=== PATIENT | female | born 1960 | race Caucasian/White ===

== ENCOUNTER 2016-11-13 17:40 | Emergency (ER) | payer OTHER ==
[2016-11-13] MEDS ORDERED: ASPIRIN 81 MG TABLET, CHEWABLE PO ONE (18:07)
--- NOTE | 2016-11-13 18:07 | ER Document Report ---
ED Medical Screen (RME) - General Chief Complaint: Syncope Stated Complaint: FOOT INJURY Mode of Arrival: Wheelchair Information source: Patient Notes: She presents to the emergency department with complaints of left foot pain. Patient reports she was sitting down with her foot under her leg she got up and heard a pop. Patient also reports that when she felt like she was in a passout. She told her to get a chair, was able to sit down, and she passed out or lost consciousness for 20-30 seconds. Patient reports she was incontinent of urine. Patient reports history of syncope. Has not had a spell for 5 years. Last spell was when she laughed really hard and passed out. Patient reports that she also feels a little funny in her chest. She was a diabetic. Patient denies history of cardiac disease but also reports that they had to drain fluid from around her heart one time. I have greeted and performed a rapid initial assessment of this patient. A comprehensive ED assessment and evaluation of the patient, analysis of test results and completion of the medical decision making process will be conducted by additional ED providers. TRAVEL OUTSIDE OF THE [place] IN LAST 30 DAYS: No - Related Data Allergies/Adverse Reactions: No Known Allergies Allergy (Verified 11/13/16 18:01) Physical Exam - Vital signs Vitals: Temp Pulse Resp BP Pulse Ox 97.4 F 81 20 139/62 H 96 11/13/16 17:58 11/13/16 17:58 11/13/16 17:58 11/13/16 17:58 11/13/16 17:58 Course - Vital Signs Vital signs: Temp Pulse Resp BP Pulse Ox 97.4 F 81 20 139/62 H 96 11/13/16 17:58 11/13/16 17:58 11/13/16 17:58 11/13/16 17:58 11/13/16 17:58
[2016-11-13 18:54] LABS: ABSOLUTE BASOPHILS # (AUTO) 0.1 10^3/uL (0.0-0.2); ABSOLUTE EOSINOPHILS # (AUTO) 0.2 10^3/uL (0.0-0.6); ABSOLUTE LYMPHOCYTES (AUTO) 2.6 10^3/uL (0.5-4.7); ABSOLUTE MONOCYTES (AUTO) 0.8 10^3/uL (0.1-1.4); ABSOLUTE NEUT (AUTO) 6.1 10^3/uL (1.7-8.2); BASOPHILS % (AUTO) 1.2 % (0-2); EOSINOPHILS % (AUTO) 1.5 % (0-6); HEMATOCRIT 43.4 % (36.0-47.0); HEMOGLOBIN 14.6 g/dL (12.0-15.5); HGB HCT DIFFERENCE 0.4; LYMPHOCYTES % (AUTO) 26.6 % (13-45); MEAN CORPUSCULAR HEMOGLOBIN 30.5 pg (27.0-33.4); MEAN CORPUSCULAR HGB CONC 33.7 g/dL (32.0-36.0); MEAN CORPUSCULAR VOLUME 91 fl (80-97); MONOCYTES % (AUTO) 7.9 % (3-13); RED BLOOD COUNT 4.79 10^6/uL (3.72-5.28); RED CELL DISTRIBUTION WIDTH 15.9 % (11.5-14.0); SEGMENTED NEUTROPHILS % (AUTO) 62.8 % (42-78); WHITE BLOOD COUNT 9.7 10^3/uL (4.0-10.5)
[2016-11-13 19:10] LABS: ALANINE AMINOTRANSFERASE 26 U/L (9-52); ALBUMIN 4.2 g/dL (3.5-5.0); ALKALINE PHOSPHATASE 118 U/L (38-126); ANION GAP 12 (5-19); ASPARTATE AMINO TRANSFERASE 16 U/L (14-36); BILIRUBIN,TOTAL 0.7 mg/dL (0.2-1.3); BLOOD UREA NITROGEN 19 mg/dL (7-20); CALCIUM 10.1 mg/dL (8.4-10.2); CARBON DIOXIDE 28 mmol/L (22-30); CHLORIDE 103 mmol/L (98-107); CREATINE KINASE 41 U/L (30-135); CREATININE RESULT 1.19 mg/dL (0.52-1.25); GLUCOSE 117 mg/dL (75-110); POTASSIUM 3.7 mmol/L (3.6-5.0); SODIUM 143.2 mmol/L (137-145); TOTAL PROTEIN 7.6 g/dL (6.3-8.2)
--- NOTE | 2016-11-13 19:16 | ER Document Report ---
ED General - General Chief Complaint: Foot Injury Stated Complaint: FOOT INJURY Time seen by provider: 19:05 Mode of Arrival: Wheelchair Notes: Patient is a 56-year-old female that comes emergency department for chief complaint of pain to her left foot and ankle, she states that she had to go to the bathroom, got up quickly after having her foot tucked under her, felt a sharp pop and sharp pain in her foot, states that she suddenly felt like she was going to pass out, she was helped to the ground as she lost consciousness, she was passed out for about 20 seconds, she was incontinent of her urine. Patient states that she came because she wants her foot checked out. She denies chest pain, dizziness, shortness of breath, states currently she feels no symptoms except for pain in her left foot and ankle. She smokes, she denies any daily medications, she denies any medical history other than passing out once about 5 years ago after laughing really hard. TRAVEL OUTSIDE OF THE [place] IN LAST 30 DAYS: No - Related Data Allergies/Adverse Reactions: No Known Allergies Allergy (Verified 11/13/16 18:01) Past Medical History - General Information source: Patient - Social History Smoking Status: Current Every Day Smoker Chew tobacco use (# tins/day): No Frequency of alcohol use: Occasional Drug Abuse: None Lives with: Family Family History: Reviewed & Not Pertinent Patient has suicidal ideation: No Patient has homicidal ideation: No - Medical History Medical History: Negative Renal/ Medical History: Denies: Hx Peritoneal Dialysis Surgical Hx: Negative - Immunizations Immunizations up to date: Yes Hx Diphtheria, Pertussis, Tetanus Vaccination: Yes Review of Systems - Review of Systems Constitutional: No symptoms reported EENT: No symptoms reported Cardiovascular: See HPI Respiratory: No symptoms reported Gastrointestinal: No symptoms reported Genitourinary: No symptoms reported Female Genitourinary: No symptoms reported Musculoskeletal: See HPI Skin: No symptoms reported Hematologic/Lymphatic: No symptoms reported Neurological/Psychological: See HPI Physical Exam - Vital signs Vitals: Temp Pulse Resp BP Pulse Ox 97.4 F 81 20 139/62 H 96 11/13/16 17:58 11/13/16 17:58 11/13/16 17:58 11/13/16 17:58 11/13/16 17:58 Interpretation: Normal - General General appearance: Appears well, Alert In distress: None - HEENT Head: Normocephalic, Atraumatic Eyes: Normal Pupils: PERRL - Respiratory Respiratory status: No respiratory distress Chest status: Nontender Breath sounds: Normal. No: Decreased air movement, Nonproductive cough, Wheezing Chest palpation: Normal - Cardiovascular Rhythm: Regular. No: Tachycardia Heart sounds: Normal auscultation, S1 appreciated, S2 appreciated Murmur: No - Abdominal Inspection: Normal Distension: No distension Bowel sounds: Normal Tenderness: Nontender. No: Tender, Guarding Organomegaly: No organomegaly - Back Back: Normal, Nontender. No: Tender - Extremities General upper extremity: Normal inspection, Nontender, Normal color, Normal ROM , Normal temperature General lower extremity: Other - There is slight soft tissue swelling and tenderness over the lateral aspect of the left foot extending up to the base of the ankle, ankle range of motion intact, normal foot, leg exam otherwise, normal distal neurovascular exam - Neurological Neuro grossly intact: Yes Cognition: Normal Orientation: AAOx4 [place] Coma Scale Eye Opening: Spontaneous [place] Coma Scale Verbal: Oriented [place] Coma Scale Motor: Obeys Commands Skylar Coma Scale Total: 15 Speech: Normal Motor strength normal: LUE, RUE, LLE, RLE Sensory: Normal - Psychological Associated symptoms: Normal affect, Normal mood - Skin Skin Temperature: Warm Skin Moisture: Dry Skin Color: Normal Course - Re-evaluation Re-evalutation: EKG shows sinus rhythm with first-degree heart block with [place] interval of 220, flattened T waves in leads aVL and in lead III, no ST segment or T-wave abnormalities in consecutive leads, no other abnormalities noted. CBC, chemistry generally unremarkable with very mild hyperglycemia and slightly low GFR with normal creatinine. Patient has lateral ankle/foot swelling, x-rays with no acute findings. No tenderness of the leg. Patient denying any current symptoms other than foot pain. I noted that patient had told triage according to the note that she had some discomfort in her chest, I asked patient again also specifically, she denies ever having any chest pain or shortness of breath, or any other symptoms other than the pain in her foot and the episode of passing out. 11/13/16 20:00 I discussed with patient potentially recycling cardiac enzymes to give cardiac clearance in regards to her syncope, patient states she came here for her foot be evaluated, she states she understands the potential concern but she disagrees and she does not agree to stay any longer. I feel this is appropriate based on patient's reported history and HPI, her workup, however I strongly encouraged patient to return immediately if she develops any other symptoms other than foot pain, patient agrees that she will do this. - Vital Signs Vital signs: Temp Pulse Resp BP Pulse Ox 97.6 F 78 16 147/78 H 98 11/13/16 20:20 11/13/16 20:20 11/13/16 20:20 11/13/16 20:20 11/13/16 20:20 - Laboratory Result Diagrams: 11/13/16 18:20 11/13/16 18:20 Laboratory results interpreted by me: 11/13/16 11/13/16 18:20 18:20 RDW 15.9 H Est GFR ( Amer) 57 L Est GFR (Non-Af Amer) 47 L Glucose 117 H Procedures - Immobilization left foot Pre-Proc Neuro Vasc Exam: Normal Immobilizer type: Griffin wrap Performed by: RN Post-Proc Neuro Vasc Exam: Normal Alignment checked and good: Yes Discharge - Discharge Clinical Impression: Foot swelling Foot injury Qualifiers: Encounter type: initial encounter Laterality: left Qualified Code(s): S99.922A - Unspecified injury of left foot, initial encounter Episode of syncope Qualifiers: Syncope type: unspecified Qualified Code(s): R55 - Syncope and collapse Condition: Stable Disposition: HOME, SELF-CARE Additional Instructions: Workup to this point does not show any acute abnormality. X-ray does not show fracture or dislocation. Use the crutches for the first 2-3 days, elevate your foot, apply ice to her foot 3-4 times a day for 10-15 minutes, take the naproxen anti-inflammatory. Follow-up with primary care. Turns emergency department for any concerning symptoms including passing out again, chest pain, shortness of breath, severe pain or swelling to your foot, or any other concerning symptoms. Prescriptions: Naproxen [Naprosyn 375 mg Tablet] 375 mg PO BID #14 tablet
[2016-11-13 19:26] LABS: CREATINE KINASE MB < 0.22 ng/mL (<4.55); TROPONIN I < 0.012 ng/mL
[2016-11-13] MEDS ORDERED: HYDROCODONE/ACETAMINOPHEN 5-325 MG 6 TAB/DSPK PO PRN (19:57)
[2016-11-13 20:34] VITALS: BP 147/78
--- NOTE | 2016-11-14 08:04 | EKG REPORT ---
SEVERITY:- ABNORMAL ECG - SINUS RHYTHM FIRST DEGREE AV BLOCK BORDERLINE T WAVE ABNORMALITIES : Confirmed by: Figueroa Potts MD 14-Nov-2016 08:03:38
== END 2016-11-13 20:34 | disposition home or self-care (01) ==
LOC: ER 17:40
DX: S99.922A Unspecified injury of left foot, initial encounter (principal); X50.0XXA Overexertion from strenuous movement or load, initial encounter; X50.9XXA Other and unspecified overexertion or strenuous movements or postures, initial encounter; Y93.89 Activity, other specified; M79.672 Pain in left foot; M25.572 Pain in left ankle and joints of left foot; M79.89 Other specified soft tissue disorders; I44.0 Atrioventricular block, first degree; R55 Syncope and collapse; R73.9 Hyperglycemia, unspecified; R32 Unspecified urinary incontinence; F17.200 Nicotine dependence, unspecified, uncomplicated
CPT/HCPCS: 36415; 80053; 82550; 82553; 84484; 85025; 93005; 93010; 99284

== ENCOUNTER 2018-02-03 11:46 | Emergency (ER) | payer OTHER ==
[2018-02-03 11:55] VITALS: BP 148/62
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
== END 2018-02-03 14:27 | disposition home or self-care (01) ==
LOC: ER 11:46
DX: S63.502A Unspecified sprain of left wrist, initial encounter (principal); S50.311A Abrasion of right elbow, initial encounter; M25.551 Pain in right hip; M25.521 Pain in right elbow; M79.632 Pain in left forearm; M79.642 Pain in left hand; W17.89XA Other fall from one level to another, initial encounter; Y93.89 Activity, other specified; Y92.512 Supermarket, store or market as the place of occurrence of the external cause; F17.210 Nicotine dependence, cigarettes, uncomplicated; E11.9 Type 2 diabetes mellitus without complications
CPT/HCPCS: 99283; 73080 ×2; 73090; 73130; 73502; 73562; 73110; L3908